=== PATIENT | female | born 1985 | race Caucasian/White ===

== ENCOUNTER 2024-03-10 15:37 | Emergency (ER) | payer OTHER ==
[~2024-03-10] VITALS: Ht 170.2 cm; Wt 63.0 kg
[2024-03-10 15:46] VITALS: TEMP 98.9; O2SAT 100
[2024-03-10 17:15] VITALS: BP 127/87; PULSE 68; RESP 17
== END 2024-03-10 18:28 | disposition home or self-care (01) ==
LOC: ER 15:37
DX: R68.89 Other general symptoms and signs (principal); Z53.21 Procedure and treatment not carried out due to patient leaving prior to being seen by health care provider
CPT/HCPCS: 99281